=== PATIENT | female | born 1940 | race Caucasian/White ===

== ENCOUNTER → 2024-10-22 14:13 | Outpatient (CLI) | payer MEDICARE, OTHER, SELFPAY ==
--- NOTE | 2024-10-22 14:17 | DI.RAD.S_ITS ---
PROCEDURE: XR ANKLE RT 2V INDICATIONS: fall, ankle pain/swelling TECHNIQUE: 2 views of the ankle were acquired. COMPARISON: None. FINDINGS: Bones: Linear lucency seen on the lateral view traverses the posterior malleolus and distal fibula. Ankle mortise is normally aligned. No suspicious bony lesions. Soft tissues: No tibiotalar joint effusion. Achilles tendon appears normal. IMPRESSION: Posterior malleolar versus distal fibular fracture. Dictated by: Pelon Stephenson M.D. on 10/22/2024 at 15:06 Approved by: Pelon Stephenson M.D. on 10/22/2024 at 15:08
--- NOTE | 2024-10-22 14:17 | DI.RAD.S_ITS ---
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 COMPARISON: None. FINDINGS: Bones: Mildly displaced fracture of the proximal is 5th metatarsal C2 Soft tissues: No tibiotalar joint effusion. Achilles tendon appears normal. IMPRESSION: Proximal 5th metatarsal fracture. Dictated by: Pelon Stephenson M.D. on 10/22/2024 at 15:08 Approved by: Pelon Stephenson M.D. on 10/22/2024 at 15:09
--- NOTE | 2024-10-22 14:17 | DI.RAD.S_ITS ---
PROCEDURE: XR FOOT RT 2V INDICATIONS: 3-4 metatarsal tender; fall/twist 1wk INTERNET MARKETING EXECUTIVE TECHNIQUE: 2 views of the foot were acquired. COMPARISON: None. FINDINGS: Bones: Linear lucency traverses the posterior malleolus.. No suspicious bony lesions. Soft tissues: No tibiotalar joint effusion. Achilles tendon appears normal. IMPRESSION: Mildly displaced posterior malleolar fracture. Dictated by: Pelon Stephenson M.D. on 10/22/2024 at 15:10 Approved by: Pelon Stephenson M.D. on 10/22/2024 at 15:14
--- NOTE | 2024-10-22 14:17 | DI.RAD.S_ITS ---
PROCEDURE: XR ANKLE LT 2V INDICATIONS: fall; left ankle/foot pain lateral TECHNIQUE: 2 views of the ankle were acquired. COMPARISON: None. FINDINGS: Bones: Mildly displaced fracture of the proximal 5th metatarsal. Ankle mortise is normally aligned. No suspicious bony lesions. Soft tissues: No tibiotalar joint effusion. Achilles tendon appears normal. IMPRESSION: Proximal 5th metatarsal fracture. Dictated by: Pelon Stephenson M.D. on 10/22/2024 at 15:05 Approved by: Pelon Stephenson M.D. on 10/22/2024 at 15:06
--- NOTE | 2024-10-22 14:17 | DI.RAD.S_ITS ---
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 COMPARISON: None. FINDINGS: Bones: No fractures or dislocations. No suspicious bony lesions. Soft tissues: No suspicious soft tissue calcifications or masses. IMPRESSION: No visualized acute fracture or dislocation. However, if clinical concern and/or pain persist, short interval imaging followup in 7-10 days is recommended, as occult injury cannot be definitively excluded. Dictated by: Lyndsey Sawyer M.D. on 10/22/2024 at 15:00 Approved by: Lyndsey Sawyer M.D. on 10/22/2024 at 15:00
== END ==
PROVIDERS: Referring Provider Student in an Organized Health Care Education/Training Program; Visit Provider Student in an Organized Health Care Education/Training Program
DX: M79.606 Pain in leg, unspecified (principal); S82.891A Other fracture of right lower leg, initial encounter for closed fracture; S92.352A Displaced fracture of fifth metatarsal bone, left foot, initial encounter for closed fracture; W19.XXXA Unspecified fall, initial encounter
CPT/HCPCS: 73590; 73600; 73620; 73630

== ENCOUNTER → 2024-11-01 17:35 | Outpatient (CLI) | payer MEDICARE, OTHER, SELFPAY ==
--- NOTE | 2024-11-01 17:38 | DI.RAD.S_ITS ---
PROCEDURE: XR CHEST 2V INDICATIONS: Cough TECHNIQUE: 2 views of the chest were acquired. COMPARISON: [facility], , CHEST 2 VIEW, 02/28/2016, 22:27. FINDINGS: Surgical changes and devices: None. Lungs and pleura: Mildly prominent interstitium. Low lung volumes. No dense consolidation. No pleural effusions. Mediastinum: Borderline cardiomegaly. This is slightly increased from prior. Bones and chest wall: Exaggerated thoracic kyphosis and spinal degenerative changes. IMPRESSION: Low lung volumes and mildly prominent interstitium, possibly bronchitis/viral infection. No dense airspace disease or pleural effusions. Borderline cardiomegaly, increased from prior. Dictated by: Андрей Gann M.D. on 11/01/2024 at 18:06 Approved by: Андрей Gann M.D. on 11/01/2024 at 18:07
== END ==
LOC: RAD 17:38
PROVIDERS: Referring Provider Nurse Practitioner Family; Visit Provider Nurse Practitioner Family
DX: R05.9 Cough, unspecified (principal)
CPT/HCPCS: 71046

== ENCOUNTER → 2024-11-15 14:07 | Outpatient (CLI) | payer MEDICARE, OTHER, SELFPAY ==
--- NOTE | 2024-11-15 | DI.CT.S_ITS ---
PROCEDURE: CT LE RT WO CON INDICATIONS: right posterior malleolus fracture TECHNIQUE: Noncontrast 1-1.5 mm axial sections acquired from above the tibiotalar joint to the bottom of the calcaneus, with coronal and sagittal reformats. COMPARISON: [facility], CR, XR ANKLE LT 2V, 10/22/2024, 14:20. FINDINGS: Image quality: Excellent. Bones: Nondisplaced posterior malleolar fracture, involving approximately 20% of the articular surface. In addition, there is a minimally displaced small avulsion fracture of the anterior lateral tibial plafond, at the insertion of the anterior tibiofibular ligament. Heterotopic ossification of the distal tibiofibular syndesmosis, representing prior injury. Additional multiple heterotopic ossification about the expected location of the anterior talofibular ligament, representing prior injury as well. No acute fracture of the distal fibula. No ankle dislocation. Soft tissues: Marked subcutaneous edema of the ankle, extending to the dorsal foot. The flexor, extensors, peroneal, and the distal Achilles tendons are grossly unremarkable. IMPRESSION: 1. Nondisplaced posterior malleolar fracture. Minimally displaced avulsion fracture of the anterior lateral tibial plafond. 2. 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 3. Marked subcutaneous edema of the ankle, extending to the dorsal foot. Dictated by: Viv Jorgensen M.D. on 11/16/2024 at 16:34 Approved by: Viv Jorgensen M.D. on 11/16/2024 at 16:39
== END ==
LOC: CT 14:08
PROVIDERS: PCP Physician Assistant; Referring Provider Physician Assistant; Visit Provider Physician Assistant
DX: S82.891A Other fracture of right lower leg, initial encounter for closed fracture (principal); S82.874A Nondisplaced pilon fracture of right tibia, initial encounter for closed fracture; M25.571 Pain in right ankle and joints of right foot
CPT/HCPCS: 73700

== ENCOUNTER 2024-11-27 11:45 | Day surgery (SDC) | payer MEDICARE, OTHER, SELFPAY ==
[2024-11-22 12:33] VITALS: BMI 25.7
[2024-11-27] VITALS (7 sets, daily range): BP systolic 129–179; BP diastolic 60–73; PULSE 63–71; RESP 12–16; TEMP 36.8–37; O2SAT 95–98; BMI 25.7
--- NOTE | 2024-11-27 | DI.RAD.S_ITS ---
PROCEDURE: XR ANKLE RT MIN 3V INDICATIONS: RT ANKLE ORIF TECHNIQUE: 3 views of the ankle were acquired. COMPARISON: [facility], CT, CT LE RT WO CON, 11/15/2024, 14:35. [facility], CR, XR ANKLE LT 2V, 10/22/2024, 14:20. Findings and impression: Fluoroscopic images were obtained for ankle procedure for fracture. Please see operative note for full details. Dictated by: Андрей Gann M.D. on 11/27/2024 at 16:54 Approved by: Андрей Gann M.D. on 11/27/2024 at 16:56
[2024-11-27] MEDS: ACETAMINOPHEN 325 MG TABLET 975 MG PO (12:35)
[2024-11-27] MEDS: LACTATED RINGERS 1,000 ML 42 ML IV (12:36)
[2024-11-27] MEDS: FAMOTIDINE 20 MG/2 ML VIAL IV (12:36)
--- NOTE | 2024-11-27 12:37 | PM.PREOP ---
Pre-operative Note Interval Note History & Physical reviewed/Exam performed by Physician: Yes Changes to H&P: No
[2024-11-27] MEDS: CEFAZOLIN 2 GM/100 ML PREMIX 100 ML IV (13:10)
--- NOTE | 2024-11-27 13:11 | SUR.PREOP ---
Block time out 12:45pm. Block start time 12:47pm . Monitoring initiated and maintained throughout procedure. Oxygen at 2L NC per anesthesiologist instructions. Patient remained stable throughout procedure, no adverse reactions noted. Block end time 12:53pm.
--- NOTE | 2024-11-27 13:25 | SUR.OPER ---
Supine on padded OR bed, head on pillow, arms secured on padded arm boards at <90 degrees abduction, legs uncrossed, safety belt at abdomen, tape over blanket over lower non operative leg, bump under right hip.
[2024-11-27] MEDS: BUPIVACAINE 0.25% (PF) 30 ML, EPINEPHrine 0.15 MG INJ (13:34)
--- NOTE | 2024-11-27 13:55 | P.OP_ITS ---
Operative Date/Time/Diagnoses Date of procedure: 11/27/24 Time of procedure: 13:05 Pre-op diagnosis: Syndesmotic disruption right ankle, closed fracture right ankle distal tibia, closed fracture right ankle posterior malleolus Post-op diagnosis: same Procedure & Clinicians Procedure: 1. Open reduction internal fixation syndesmosis right ankle CPT code 56476 2. Closed treatment ankle fracture posterior malleolus CPT code 01349 Same procedure as scheduled: Yes Indications: The patient is an 84-year-old female who sustained bilateral lower extremity injuries she sustained a right ankle fracture including posterior malleolus and anterior tibial Chap[place] fracture fragments represent a syndesmotic disruption. She also sustained left 5th metatarsal fracture. The left 5th metatarsal fracture we will be treated non operatively. The pattern of ankle fracture on her right side is an unstable pattern and in order to maintain alignment reduce the risk of posttraumatic arthritis and allow early weight-bearing and mobilization ORIF was indicated. The risks and benefits of the procedure have been discussed with the patient and given the opportunity to ask questions. The risks of surgery include but are not limited to infection, malunion, nonunion, persistence of pain, damage to nerves and blood vessels, posttraumatic arthritis, DVT, PE, coardiopulmonary complications and . The patient expressed a thorough understanding of the risks and benefits of surgery and has elected to proceed. Consent was signed Surgeon: Monika Zhu Click Yes if Unassisted: Yes Anesthesia Type: General, Peripheral nerve block and Local Operative Notes Findings: Nondisplaced posterior malleolus right tibial fractures and [place] fractures. Representing right ankle syndesmotic injury. Syndesmosis was stabilized with divergent suture button devices and tightened to restore anatomic mortise alignment. Posterior malleolus fracture and [place] fracture remained nondisplaced. Closure Type: primary Specimen(s): none sent Prosthetic devices, grafts, tissues, transplants, or devices: Arthrex tightrope Xp x2 placed in a divergent fashion Estimated Blood Loss (mL): 2 Blood products transfused: none Tourniquet time (min): 20 Procedure in detail: Patient was seen in the preoperative area the site of surgery was marked informed consent confirmed. This is the right ankle. Patient was seen by the anesthesia team and underwent a regional block for postoperative pain control. The patient was then taken to the operating room positioned supine on operative table. General anesthetic was administered. A well-padded thigh tourniquet was applied to the right lower extremity and SCD placed on the contralateral lower extremity. An ipsilateral thigh bump was placed. The right leg was prepped and draped in standard sterile fashion a formal time-out procedure was performed confirming the patient's side and site of surgery administration of appropriate preoperative antibiotic. All were in agreement. Attention turned to the right ankle the Esmarch was used for exsanguination the tourniquet raised the thigh to 250 mm of mercury. The C-arm was brought in and the level of the syndesmosis was marked out on the skin. Then a small incision was made along the lateral fibula proximally 3 cm in length and dissected down to the bone. The guidewire for the tightrope Xp was then advanced from the fibula across the fibula syndesmosis and tibialis from an anterior to posterior direction proximally 30 degree ankle. Next a 2nd tightrope Xp wire was advanced in a more neutral plane from lateral fibula into the midline medial tibia.. These were checked under fluoroscopy then sequentially drilled. Tightrope Xp was then deployed in the more superior drill hole and provisionally tightened. Second tightrope was then deployed and tightened in a similar fashion. There was noted to be a slight puckering of the most distal tightrope medial button this had tension soft tissu e so small medial skin incision was made freeing up the soft tissue distal button and then this laid nice and flat down to the bone without any skin puckering. Final tightening was completed. X-rays demonstrated symmetric mortise stable under external rotation stress test the after syndesmotic tightrope fixation. The final tightening was completed and the sutures were then cut. The wound was irrigated closed with 4-0 Monocryl and 3-0 nylon suture. A well-padded posterior and U splint was applied in neutral position. The patient was awoken from anesthesia and taken to recovery unit in good condition. There were no immediate complications from this procedure. All counts were correct. Complications: none Post-operative Condition: stable Disposition: PACU Plan for aftercare: Touchdown or flatfoot weight-bearing with a walker. Keep splint clean dry and intact. Follow up in [facility] in 2 weeks for suture removal weightbearing x-rays and advancement of weight-bearing. Bring walking boot to postoperative. Use aspirin 325 mg daily for DVT prophylaxis. This is the equivalent of 4 baby aspirin once a day.
--- NOTE | 2024-11-27 14:09 | PM.PREOP ---
Pre-operative Note Interval Note History & Physical reviewed/Exam performed by Physician: Yes Changes to H&P: No
--- NOTE | 2024-11-27 17:01 | SUR.PHASEII ---
1615 Report called to JOE Castillo at [facility] in [place].
== END 2024-11-27 16:00 | disposition home or self-care (01) ==
PROVIDERS: PCP Physician Assistant; Referring Provider Orthopaedic Surgery Foot and Ankle Surgery; Visit Provider Orthopaedic Surgery Foot and Ankle Surgery
PROC: 0SSF04Z Reposition Right Ankle Joint with Internal Fixation Device, Open Approach (ICD-10-PCS; CPT 27829; principal; 2024-11-27 13:30)
DX: S82.391A Other fracture of lower end of right tibia, initial encounter for closed fracture (principal); S93.431A Sprain of tibiofibular ligament of right ankle, initial encounter; S82.891A Other fracture of right lower leg, initial encounter for closed fracture; S92.352A Displaced fracture of fifth metatarsal bone, left foot, initial encounter for closed fracture; G89.18 Other acute postprocedural pain; W01.0XXA Fall on same level from slipping, tripping and stumbling without subsequent striking against object, initial encounter; Y92.89 Other specified places as the place of occurrence of the external cause
CPT/HCPCS: 27829; 27767; 64450; 73610; 76000; C1713; J0171; J0690; J1100; J2405; J2704; J3010; J3490